=== PATIENT | male | born 1970 | race Two or more races ===

== ENCOUNTER 2020-09-18 07:07 | Outpatient (REF) | payer MEDICARE, MEDICAID, SELFPAY ==
[2020-09-18 08:54] LABS: Alanine Aminotransferase 283 U/L (0-40); Albumin Level 4.1 g/dL (3.5-5.0); Alkaline Phosphatase 110 U/L (39-117); Anion Gap 11 (12-20); Aspartate Amino Transferase 211 U/L (5-37); Bilirubin Total 0.6 mg/dL (0.0-1.0); Blood Urea Nitrogen 22 mg/dL (9-16); Calcium 9.2 mg/dL (8.4-10.2); Carbon Dioxide 28 mmol/L (22-29); Chloride 105 mmol/L (96-108); Cholesterol 117 mg/dL; Estimated Glomerular Filt Rate > 60; Glucose Fasting 102 mg/dL (60-99); HDL Cholesterol 19 mg/dL; LDL Cholesterol Calculated 72 mg/dl; Potassium 4.3 mmol/l (3.3-5.1); Sodium 140 mmol/L (135-145); Total Protein 6.9 g/dL (6.5-8.0); Triglycerides 132 mg/dL
== END 2020-09-18 07:08 | disposition home or self-care (01) ==
LOC: HO.LAB 07:07
PROVIDERS: Visit Provider Internal Medicine
DX: Z13.89 Encounter for screening for other disorder (principal)
CPT/HCPCS: 80053; 80061

== ENCOUNTER 2020-09-18 07:34 | Outpatient (REF) | payer MEDICARE, MEDICAID, SELFPAY | END 2020-09-18 07:35 | disposition home or self-care (01) | LOC: HO.LAB 07:34 | PROVIDERS: PCP Internal Medicine; Visit Provider Internal Medicine | DX: Z20.828 Contact with and (suspected) exposure to other viral communicable diseases (principal) | CPT/HCPCS: 80053; 80061; C9803; U0003 ==

== ENCOUNTER → 2020-09-26 14:00 | Outpatient (BNVA) | payer MEDICARE, MEDICAID, SELFPAY | PROVIDERS: PCP Internal Medicine; Visit Provider Physician Assistant | DX: Z13.89 Encounter for screening for other disorder (principal) | CPT/HCPCS: Q3014 ==

== ENCOUNTER 2020-09-27 06:35 | Outpatient (REF) | payer MEDICARE, MEDICAID, SELFPAY ==
[2020-09-27 07:22] LABS: Eosinophils Absolute Auto 0.3 X10*3/uL (0.0-0.4); Imm Gran Abs Auto 0.01 X10*3/uL (0.00-0.03); Imm Gran Pct Auto 0.2 % (0.0-0.4); MANUAL DIFF FLAG SCAN; Neutrophils Percent Auto 55.2 % (45-73); PLT CLUMP 1; SCAN SMEAR FLAG 1
[2020-09-27 07:24] LABS: Basophils Absolute Auto 0.1 X10*3/uL (0.0-0.2); Hematocrit 48.7 % (42-52); Hemoglobin 16.4 g/dl (14.0-18.0); Mean Corpuscular HGB Conc 33.7 g/dl (31.0-36.0); Mean Corpuscular Hemoglobin 33.6 pg (27.0-33.0); Mean Corpuscular Volume 99.8 fL (80-98); Mean Platelet Volume 11.4 fL (9.4-12.4); Monocytes Absolute Auto 0.5 X10*3/uL (0.1-1.2); Monocytes Percent Auto 7.6 % (2-11); Neutrophils Absolute Auto 3.4 X10*3/uL (2.0-8.3); Platelet Count 115 X10*3/uL (160-400); Red Blood Count 4.88 X10*6/uL (4.60-5.80); Red Cell Distribution Width 12.1 % (11.0-16.0); White Blood Count 6.2 X10*3/uL (4.8-10.8)
[2020-09-27 07:54] LABS: Hepatitis A Antibody IgG REACTIVE (Nonreactive); ~Hepatitis A Antibody IgG 1.11 S/CO (0.00-0.99)
[2020-09-27 07:56] LABS: HBsAGNum1 0.24 S/CO (0.00-0.99); Hepatitis B Surface Antigen Negative (Negative)
[2020-09-27 07:58] LABS: HBS Num1 3.62 mIU/mL (0-7.99); Hepatitis B Core Antibody Nonreactive (Nonreactive); ~Hepatitis B Surface Antibody NONREACTIVE (Nonreactive)
[2020-09-29 18:47] LABS: Alpha 1 Anti-trypsin 156 mg/dL (83-199); Ceruloplasmin 28 mg/dL (18-36)
[2020-10-01 13:27] LABS: Mitochondrial Antibodies NEGATIVE (NEGATIVE)
[2020-10-02 09:57] LABS: Anti Nuclear Antibody Screen POSITIVE
[2020-10-02 12:28] LABS: Smooth Muscle Antibody <20 U (<20)
[2020-10-02 19:08] LABS: Hepatitis C Genotype 1a
== END 2020-09-27 06:36 | disposition home or self-care (01) ==
LOC: HO.LAB 06:35
PROVIDERS: Visit Provider Physician Assistant
DX: R74.01 Elevation of levels of liver transaminase levels (principal); R74.8 Abnormal levels of other serum enzymes
CPT/HCPCS: 36415; 82103; 82390; 85025; 86038; 86039; 86255; 86256; 86704; 86706; 86708; 87340; 87902

== ENCOUNTER → 2020-10-18 13:28 | Outpatient (BNVA) | payer MEDICARE, MEDICAID, SELFPAY | PROVIDERS: PCP Internal Medicine; Visit Provider Physician Assistant | DX: Z13.89 Encounter for screening for other disorder (principal) | CPT/HCPCS: Q3014 ==

== ENCOUNTER 2020-11-17 07:38 | Outpatient (REF) | payer MEDICARE, MEDICAID, SELFPAY ==
--- NOTE | ~2020-11-17 | US_ITS ---
EXAMINATION: US ABDOMEN LIMITED WITH LIVER ELASTOGRAPHY CLINICAL INFORMATION: LFT COMPARISON: US February 2014 TECHNIQUE: Real-time imaging of the abdominal viscera. Noninvasive ultrasound liver fibrosis assessment is performed using Jessica ElastPQ point quantification shear wave elastography (pSWE) with a C5-2 MHz transducer. Multiple elastography samples are obtained. FINDINGS: PANCREAS: Normal. LIVER: Normal. The liver demonstrates normal size, contour and echogenicity. No focal lesion or intrahepatic biliary duct dilatation. The right lobe measures 18 cm in length. The left lobe measures 14 cm in length. Portal flow is hepatopetal. Shear wave liver elastography median stiffness is 1.99 m/s (reference: normal median stiffness is 1.3 m/s or less). IQR/median stiffness to assess sampling precision is .21 (reference: good quality data set is IQR/median stiffness of 0.15 or less). GALLBLADDER: Normal. The gallbladder is physiologically distended without evidence of stones, sludge, polyps, wall thickening or pericholecystic fluid. COMMON BILE DUCT: Normal in caliber measuring 0.4 cm in diameter. RIGHT KIDNEY: Normal. No hydronephrosis. No renal calculi or focal parenchymal lesions. The kidney measures 11.3 cm in maximum dimension. FREE FLUID: None. US/US abdomen burns w elastography IMPRESSION: 1. Impression: Unremarkable exam. 2. Liver elastography: Slightly limited due to sampling error. Increased liver stiffness suggestive of possible compensated advanced chronic liver disease. Additional testing should be considered. REFERENCE: Society of Radiologists in Ultrasound Liver Stiffness Thresholds (2020): LIVER STIFFNESS THRESHOLDS: *Liver Stiffness equal or less than 1.3 m/s: High probability of being normal. *Liver Stiffness less than 1.7 m/s: In the absence of other known clinical signs, rules out compensated advanced chronic liver disease. *Liver Stiffness 1.7-2.1 m/s: Suggestive of compensated advanced chronic liver disease but need further test for confirmation. *Liver Stiffness over 2.1 m/s: Rules in compensated advanced chronic liver disease. *Liver Stiffness over 2.4 m/s: Suggestive of clinically significant portal hypertension. QUALITY OF DATA SET: *IQR/Median value equal or less than 0.15 implies a quality data set. *IQR/Median value over 0.15 implies a poor quality data set. SIGNIFICANT CHANGE FROM PRIOR EXAM: Significant change if liver stiffness measurement is 10% or greater from prior exam. OTHER CONSIDERATIONS: The stage of liver fibrosis may be overestimated in the setting of acute hepatitis, liver inflammation, elevated liver function tests, hepatic vascular congestion, obstructive cholestasis, non-fasting state, and infiltrative diseases such as amyloidosis and lymphoma. In some patients with NAFLD, the liver stiffness thresholds for compensated advanced chronic liver disease may be lower. In causes other than viral hepatitis and NAFLD, liver stiffness thresholds are not well established.
== END 2020-11-17 07:39 | disposition home or self-care (01) ==
LOC: HO.US 07:38
PROVIDERS: Visit Provider Physician Assistant
DX: R74.01 Elevation of levels of liver transaminase levels (principal)
CPT/HCPCS: 76705; 76981

== ENCOUNTER → 2020-12-11 10:33 | Outpatient (BNVA) | payer MEDICARE, MEDICAID, SELFPAY | PROVIDERS: PCP Internal Medicine; Visit Provider Physician Assistant | DX: Z13.89 Encounter for screening for other disorder (principal) | CPT/HCPCS: Q3014 ==

== ENCOUNTER 2020-12-12 06:30 | Outpatient (REF) | payer MEDICARE, MEDICAID, SELFPAY ==
[2020-12-12 06:50] LABS: MANUAL DIFF FLAG NO
[2020-12-12 06:56] LABS: Basophils Percent Auto 0.7 % (0-2); Eosinophils Absolute Auto 0.3 X10*3/uL (0.0-0.4); Eosinophils Percent Auto 4.4 % (0-4); Hematocrit 47.2 % (42-52); Hemoglobin 15.8 g/dl (14.0-18.0); Imm Gran Abs Auto 0.01 X10*3/uL (0.00-0.03); Imm Gran Pct Auto 0.2 % (0.0-0.4); Lymphocytes Percent Auto 34.3 % (20-40); Mean Corpuscular HGB Conc 33.5 g/dl (31.0-36.0); Mean Corpuscular Hemoglobin 32.8 pg (27.0-33.0); Mean Corpuscular Volume 98.1 fL (80-98); Mean Platelet Volume 10.4 fL (9.4-12.4); Monocytes Absolute Auto 0.5 X10*3/uL (0.1-1.2); Monocytes Percent Auto 8.1 % (2-11); Neutrophils Absolute Auto 3.1 X10*3/uL (2.0-8.3); Neutrophils Percent Auto 52.3 % (45-73); Platelet Count 144 X10*3/uL (160-400); Red Blood Count 4.81 X10*6/uL (4.60-5.80); White Blood Count 5.9 X10*3/uL (4.8-10.8)
[2020-12-12 07:35] LABS: Alanine Aminotransferase 267 U/L (0-40); Alkaline Phosphatase 110 U/L (39-117); Aspartate Amino Transferase 157 U/L (5-37); Bilirubin Direct 0.3 mg/dL (0.0-0.5); Total Protein 6.8 g/dL (6.5-8.0)
[2020-12-14 17:47] LABS: HepC Viral Load 502000 IU/mL (NOT DETECTED)
[2020-12-16 17:42] LABS: FIB-ALT 231 U/L (9-46); FIB-Alpha-2-Macroglobulin 338 mg/dL (106-279); FIB-Apolipoprotein A1 88 mg/dL (94-176); FIB-GGT 70 U/L (3-95); FIB-Haptoglobin 76 mg/dL (43-212); FIB-Total Bilirubin 0.7 mg/dL (0.2-1.2); Liver Fibrosis Stage F4; Nec Inflam Act Grade A3; Nec Inflam Act Score 0.92
== END 2020-12-12 06:31 | disposition home or self-care (01) ==
LOC: HO.LAB 06:30
PROVIDERS: PCP Internal Medicine; Visit Provider Physician Assistant
DX: R74.01 Elevation of levels of liver transaminase levels (principal); B19.20 Unspecified viral hepatitis C without hepatic coma; R10.11 Right upper quadrant pain; Z23 Encounter for immunization
CPT/HCPCS: 36415; 80076; 81596; 85025; 87522; 90471; 90746

== ENCOUNTER → 2020-12-25 10:19 | Outpatient (BNVA) | payer MEDICARE, MEDICAID, SELFPAY | PROVIDERS: PCP Internal Medicine; Visit Provider Physician Assistant | DX: B19.20 Unspecified viral hepatitis C without hepatic coma (principal) | CPT/HCPCS: Q3014 ==

== ENCOUNTER → 2021-01-29 08:50 | Outpatient (BNVA) | payer MEDICARE, MEDICAID, SELFPAY | PROVIDERS: PCP Internal Medicine; Visit Provider Physician Assistant | DX: Z23 Encounter for immunization (principal) | CPT/HCPCS: 90471; 90746 ==

== ENCOUNTER 2021-02-22 05:56 | Outpatient (REF) | payer MEDICARE, MEDICAID, SELFPAY ==
[2021-02-22 07:03] LABS: MANUAL DIFF FLAG NO
[2021-02-22 07:08] LABS: Basophils Absolute Auto 0.1 X10*3/uL (0.0-0.2); Basophils Percent Auto 0.8 % (0-2); Eosinophils Absolute Auto 0.4 X10*3/uL (0.0-0.4); Hematocrit 48.2 % (42-52); Hemoglobin 16.2 g/dl (14.0-18.0); Imm Gran Abs Auto 0.03 X10*3/uL (0.00-0.03); Imm Gran Pct Auto 0.4 % (0.0-0.4); Lymphocytes Absolute Auto 2.4 X10*3/uL (1.2-4.9); Lymphocytes Percent Auto 34.1 % (20-40); Mean Corpuscular HGB Conc 33.6 g/dl (31.0-36.0); Mean Corpuscular Hemoglobin 32.9 pg (27.0-33.0); Mean Platelet Volume 10.9 fL (9.4-12.4); Monocytes Absolute Auto 0.5 X10*3/uL (0.1-1.2); Monocytes Percent Auto 7.1 % (2-11); Neutrophils Absolute Auto 3.8 X10*3/uL (2.0-8.3); Neutrophils Percent Auto 52.6 % (45-73); Platelet Count 192 X10*3/uL (160-400); Red Blood Count 4.92 X10*6/uL (4.60-5.80); Red Cell Distribution Width 12.1 % (11.0-16.0); White Blood Count 7.2 X10*3/uL (4.8-10.8)
[2021-02-22 07:34] LABS: Alanine Aminotransferase 28 U/L (0-40); Albumin Level 4.1 g/dL (3.5-5.0); Alkaline Phosphatase 112 U/L (39-117); Anion Gap 11 (12-20); Aspartate Amino Transferase 25 U/L (5-37); Bilirubin Total 0.5 mg/dL (0.0-1.0); Blood Urea Nitrogen 16 mg/dL (9-16); Carbon Dioxide 26 mmol/L (22-29); Chloride 108 mmol/L (96-108); Estimated Glomerular Filt Rate > 60; Glucose Random 105 mg/dL (60-115); Potassium 4.4 mmol/L (3.3-5.1); Sodium 141 mmol/L (135-145); Total Protein 6.8 g/dL (6.5-8.0)
[2021-02-24 09:01] LABS: HCV Log PCR <1.18 NOT DETECTED Log IU/mL (NOT DETECTED); HepC Viral Load <15 NOT DETECTED IU/mL (NOT DETECTED)
== END 2021-02-22 05:57 | disposition home or self-care (01) ==
LOC: HO.LAB 05:56
PROVIDERS: PCP Internal Medicine; Visit Provider Physician Assistant
DX: B19.20 Unspecified viral hepatitis C without hepatic coma (principal)
CPT/HCPCS: 36415; 80053; 85025; 87522; 99212

== ENCOUNTER → 2021-03-22 09:41 | Outpatient (BNVA) | payer MEDICARE, MEDICAID, SELFPAY | PROVIDERS: PCP Internal Medicine; Visit Provider Physician Assistant | DX: Z13.89 Encounter for screening for other disorder (principal) | CPT/HCPCS: Q3014 ==

== ENCOUNTER 2021-04-16 06:39 | Outpatient (REF) | payer MEDICARE, MEDICAID, SELFPAY ==
[2021-04-16 07:36] LABS: MANUAL DIFF FLAG NO
[2021-04-16 07:40] LABS: Basophils Absolute Auto 0.1 X10*3/uL (0.0-0.2); Basophils Percent Auto 0.8 % (0-2); Eosinophils Absolute Auto 0.4 X10*3/uL (0.0-0.4); Eosinophils Percent Auto 4.3 % (0-4); Hematocrit 50.4 % (42-52); Hemoglobin 16.5 g/dl (14.0-18.0); Imm Gran Abs Auto 0.03 X10*3/uL (0.00-0.03); Imm Gran Pct Auto 0.3 % (0.0-0.4); Lymphocytes Absolute Auto 3.1 X10*3/uL (1.2-4.9); Mean Corpuscular HGB Conc 32.7 g/dl (31.0-36.0); Mean Corpuscular Hemoglobin 31.9 pg (27.0-33.0); Mean Corpuscular Volume 97.3 fL (80-98); Mean Platelet Volume 10.7 fL (9.4-12.4); Monocytes Absolute Auto 0.7 X10*3/uL (0.1-1.2); Monocytes Percent Auto 7.3 % (2-11); Neutrophils Absolute Auto 4.8 X10*3/uL (2.0-8.3); Neutrophils Percent Auto 53.3 % (45-73); Platelet Count 204 X10*3/uL (160-400); Red Blood Count 5.18 X10*6/uL (4.60-5.80); Red Cell Distribution Width 12.3 % (11.0-16.0)
[2021-04-16 07:56] LABS: Alanine Aminotransferase 58 U/L (0-40); Albumin Level 4.1 g/dL (3.5-5.0); Alkaline Phosphatase 104 U/L (39-117); Anion Gap 13 (12-20); Aspartate Amino Transferase 47 U/L (5-37); Bilirubin Total 0.6 mg/dL (0.0-1.0); Blood Urea Nitrogen 18 mg/dL (9-16); Calcium 9.6 mg/dL (8.4-10.2); Carbon Dioxide 26 mmol/L (22-29); Chloride 109 mmol/L (96-108); Estimated Glomerular Filt Rate > 60; Glucose Random 110 mg/dL (60-115); Potassium 4.5 mmol/L (3.3-5.1); Sodium 143 mmol/L (135-145); Total Protein 6.9 g/dL (6.5-8.0)
[2021-04-19 11:26] LABS: HCV Log PCR <1.18 NOT DETECTED Log IU/mL (NOT DETECTED); HepC Viral Load <15 NOT DETECTED IU/mL (NOT DETECTED)
== END 2021-04-16 06:40 | disposition home or self-care (01) ==
LOC: HO.LAB 06:39
PROVIDERS: PCP Internal Medicine; Visit Provider Physician Assistant
DX: B19.20 Unspecified viral hepatitis C without hepatic coma (principal)
CPT/HCPCS: 36415; 80053; 85025; 87522

== ENCOUNTER 2021-10-01 07:14 | Outpatient (REF) | payer MEDICARE, MEDICAID, SELFPAY ==
[2021-10-01 07:28] LABS: MANUAL DIFF FLAG NO
[2021-10-01 07:49] LABS: Basophils Absolute Auto 0.1 X10*3/uL (0.0-0.2); Basophils Percent Auto 0.9 % (0-2); Eosinophils Absolute Auto 0.2 X10*3/uL (0.0-0.4); Eosinophils Percent Auto 3.1 % (0-4); Hematocrit 49.4 % (42.0-52.0); Hemoglobin 16.5 g/dl (14.0-18.0); Imm Gran Abs Auto 0.02 X10*3/uL (0.00-0.03); Imm Gran Pct Auto 0.3 % (0.0-0.4); Lymphocytes Absolute Auto 2.7 X10*3/uL (1.2-4.9); Lymphocytes Percent Auto 34.9 % (20-40); Mean Corpuscular HGB Conc 33.4 g/dl (31.0-36.0); Mean Corpuscular Volume 95.7 fL (80.0-98.0); Mean Platelet Volume 10.7 fL (9.4-12.4); Monocytes Absolute Auto 0.6 X10*3/uL (0.1-1.2); Monocytes Percent Auto 7.9 % (2-11); Neutrophils Absolute Auto 4.1 x10*3/uL (2.0-8.3); Neutrophils Percent Auto 52.9 % (45-73); Platelet Count 220 X10*3/uL (160-400); Red Blood Count 5.16 X10*6/uL (4.60-5.80); Red Cell Distribution Width 12.3 % (11.0-16.0); White Blood Count 7.7 X10*3/uL (4.8-10.8)
[2021-10-01 08:00] LABS: Alanine Aminotransferase 61 U/L (0-40); Albumin Level 4.3 g/dL (3.5-5.0); Alkaline Phosphatase 89 U/L (39-117); Anion Gap 11 (12-20); Aspartate Amino Transferase 40 U/L (5-37); Bilirubin Total 1.1 mg/dL (0.0-1.0); Blood Urea Nitrogen 19 mg/dL (9-16); Calcium 10.2 mg/dL (8.4-10.2); Carbon Dioxide 25 mmol/L (22-29); Chloride 109 mmol/L (96-108); Estimated Glomerular Filt Rate > 60; Glucose Random 109 mg/dL (60-115); Sodium 141 mmol/L (135-145); Total Protein 7.1 g/dL (6.5-8.0)
[2021-10-06 16:01] LABS: HCV Log PCR <1.18 NOT DETECTED Log IU/mL (NOT DETECTED); HepC Viral Load <15 NOT DETECTED IU/mL (NOT DETECTED)
== END 2021-10-01 07:15 | disposition home or self-care (01) ==
LOC: HO.LAB 07:14
PROVIDERS: PCP Physician Assistant; Visit Provider Physician Assistant
DX: B19.20 Unspecified viral hepatitis C without hepatic coma (principal)
CPT/HCPCS: 36415; 80053; 85025; 87522

== ENCOUNTER 2021-10-08 08:17 | Outpatient (REF) | payer MEDICARE, MEDICAID, SELFPAY ==
[2021-10-08 09:34] LABS: COVID-19 Test Negative (Negative); IDNOW Serial# 16C4AD1C
== END 2021-10-08 08:18 | disposition home or self-care (01) ==
LOC: HO.LAB 08:17
PROVIDERS: Visit Provider Internal Medicine
DX: Z20.822 Contact with and (suspected) exposure to COVID-19 (principal)
CPT/HCPCS: 87635; C9803

== ENCOUNTER → 2022-06-20 11:48 | Outpatient (BNVA) | payer MEDICARE, MEDICAID, SELFPAY | PROVIDERS: PCP Internal Medicine; Visit Provider Physician Assistant | DX: B19.20 Unspecified viral hepatitis C without hepatic coma (principal); K58.9 Irritable bowel syndrome, unspecified | CPT/HCPCS: 99212 ==

== ENCOUNTER 2023-04-02 16:04 | Outpatient (AMB) | payer MEDICARE, MEDICAID, SELFPAY ==
[2023-04-02 16:07] VITALS: BP 118/60; PULSE 67; O2SAT 97; BMI 20.8
--- NOTE | 2023-04-02 16:07 | A.OFFVIS_ITS ---
Intake Vital Signs 04/02/23 16:07 Height 5 ft 6 in Weight 129 lb BMI 20.8 BP 118/60 Blood Pressure Location Lt brachial Position Sitting Pulse 67 Pulse Source Pulse Oximeter Temp Source Skin Pulse Oximetry (%) 97 Oxygen Delivery Method Room Air Intake Visit Reasons: AWV Intake Note: Patient is here for an Annual Wellness Visit. Chest Painting Leader Required: Yes Chest Painting Leader Language: Omani Allergies penicillin V Allergy (Unknown, Verified 04/02/23 16:37) rash Medication List - Last Reconciled 04/02/23 by BOB Guallpa trazodone 50 mg PO BEDTIME PRN 30 days HPI AWV HPI Details Patient is a 52-year-old male who presents today for initial wellness visit. Patient of Dr. Metcalf. Today we discussed patient's need for colon cancer screening, prostate cancer screening, and diabetes screening. [place] of care was reviewed with the patient and he was provided with a screening schedule. End of life planning was discussed with the patient and he was provided with healthcare proxy and MOLST forms. Patient is a Omani- speaking and Casa was helping with interpretation. [facility] Medical History Depression Family history of diabetes mellitus HCV (hepatitis C virus) Insomnia Panic attacks Transaminitis Family History Father No problems noted. Mother No problems noted. Sister Diabetes mellitus Social History Household Members: None Household Members Other:: alone Alcohol intake: never Cigarettes Per Day: 10 Substance Use Type: Marijuana Current occupational status: disabled Questionnaire Medicare Wellness Checkup [age] 65-69 What gender do you identify with?: male During the past 4 weeks, how much have you been bothered by emotional problems such as feeling anxious, depressed, irritable, sad or downhearted, and blue?: not at all During the past 4 weeks, has your physical & emotional health limited your social activities with family, friends, neighbors, or groups?: not at all During the past 4 weeks, how much bodily pain have you generally had?: mild pain During the past 4 weeks, was someone available to help you if you needed & wanted help?: no, not at all During the past 4 weeks, what was the hardest physical activity you could do for at least 2 minutes?: moderate Can you get to places out of walking distance without help? (For eg., can you travel alone on buses, taxis or drive your car?): Yes Can you go shopping for groceries or clothes without someone's help?: Yes Can you prepare your own meals?: Yes Can you do your housework without help?: Yes Because of any health problems, do you need the help of another person with your personal care needs such as eating, bathing, dressing or getting around the house?: No Can you handle your own money without help?: Yes During the past 4 weeks, how would you rate your health in general?: fair During the past 4 weeks how have things been going for you?: pretty well Are you having difficulties driving your car?: no Do you always fasten your seat belt when you are in a car?: yes, usually During past 4 weeks, have you been bothered by the following: never: Sexual problems? and Problems using the telephone?, sometimes: Teeth or denture problems?, often: Falling or dizzy when standing up and Tiredness or fatigue? and always: Trouble eating well? Have you fallen 2 or more times in the past year?: No Are you afraid of falling?: No Are you a smoker?: yes, but I'm not ready to quit During the past 4 weeks, how many drinks of wine, beer, or other alcoholic beverages did you have?: 1 drink or less per week Do you exercise for about 20 minutes 3 or more times a week?: yes, some of the time Have you been given information to help with the following?: no: Hazards in your house that might hurt you? and no: Keeping track of your medications? How often do you have trouble taking medicines the way you have been told to vincenzo e them?: I always take medicine as prescribed How confident are you that you can control & manage most of your health problems?: somewhat confident What is your race?: or origin or descent Mini Mental State Exam (MMSE) Orientation What is the (year) (season) (date) (day) (month)?: year, season, date, day and month Score Score: 5 Activity of Daily Living Bathing - sponge bath, tub bath or shower: receives no assistance (gets in/out by self, if usual bathing means Dressing - getting clothes from closets & drawers, including inner/outer garments & fasteners.: gets clothes & gets completely dressed without help Toileting - going to the 'toilet room' for urine/bowel elimination & cleaning self/arranging clothes: goes to toilet room, cleans self, arranges clothes without help Transfer: moves in & out of bed and chair without help (may use support object) Continence: controls urination/bowel movements completely by self Feeding: feeds self without help Total Score: 0 Information obtained from: patient Using telephone: independent Traveling: independent Shopping: independent Preparing meals: independent Housework: independent Taking medicine: independent Managing money: independent PHQ-9 Over the last 2 weeks, how often have you been bothered by any of the following problems? 1. Little interest or pleasure in doing things: not at all 2. Feeling down, depressed, or hopeless: not at all 3. Trouble falling or staying asleep, or sleeping too much: not at all 4. Feeling tired or having little energy: not at all 5. Poor appetite or overeating: not at all 6. Feeling bad about yourself - or that you are a failure or have let yourself or your family down: not at all 7. Trouble concentrating on things, such as reading the newspaper or watching television: not at all 8. Moving or speaking so slowly that other people could have noticed. Or the opposite - being so fidgety or restless that you have been moving around a lot more than usual: not at all 9. Thoughts that you would be better off or of hurting yourself in some way: not at all Total score: 0 Depression Screening Interpretation: Negative 03219 - PHQ-9 Billing: Yes Source: Developed by Drs. Rm Thomas, Marcella Mast, Rohan Brambila and colleagues, with an educational lamar from [employer]. SULLY-7 AMB Questionnaire SULLY-7 Date SULLY - 7 assessed: 04/02/23 Feeling nervous, anxious, or on edge: 0 = Not at all Not being able to stop or control worryin = Not at all Worrying too much about different things: 0 = Not at all Trouble relaxin = Not at all Being so restless that it is hard to sit still: 0 = Not at all Becoming easily annoyed or irritable: 0 = Not at all Feeling afraid as if something awful might happen: 0 = Not at all Total SULLY-7 score (0-4 normal; 5-9 mild; 10-14 moderate; 15-21 severe): 0 Source: Developed by Drs. Rm Thomas, Marcella Mast, Rohan Brambila and colleagues, with an educational lamar from [employer]. SULLY-7 Assessment Billing SULLY-7 Assessment Tool: SULLY-7 Assessment 15752 AUDIT C Alcohol Use Questionnaire (AUDIT-C) 1. How often do you have a drink containing alcohol?: Never 3. How often do you have six or more drinks on one occasion?: Never Total Score: 0 Score Reviewed/Action Taken: No Thrive Questionnaire Date Thrive assessed: 04/02/23 I am a: Patient What is your living situation today?: I have a steady place to live Within the past 12 months, did the food you bought not last and you didn't have the money to get more?: Never true Within the past 12 months, did you worry whether your food would run out before you got money to buy more?: Never true Do you have trouble paying for medicines?: No Do you have trouble getting transportation to medical appointments?: No Do you have trouble paying your heating and electricity bill?: No Do you have trouble taking care of your child, family member or friend?: No Do you have trouble with day-to-day activities such as bathing, preparing meals, shopping, managing finances, etc.?: No Are you currently unemployed and looking for a job?: No Are you interested in more education?: No Currently or been in a relationship where the following occur: no concerns reported Physical Exam Vital Signs: Last Vital Signs Pulse 67 04/02/23 16:07 BP 118/60 04/02/23 16:07 Pulse Ox 97 04/02/23 16:07 Oxygen Delivery Method Room Air 04/02/23 16:07 BMI result Body Mass Index 20.8 Const General: cooperative and no acute distress Orientation/consciousness: patient oriented x3 HEENT Other: Whisper test: pass Neuro Other: Balance: Normal Get up and walk: able to Romberg: negative Tandem gait: able to General: patient oriented x3 Assessment & Plan Assessment & Plan (1) Screening for colon cancer: Code(s): Z12.11 - Encounter for screening for malignant neoplasm of colon (2) Screening for prostate cancer: Code(s): Z12.5 - Encounter for screening for malignant neoplasm of prostate (3) Screening for diabetes mellitus: Code(s): Z13.1 - Encounter for screening for diabetes mellitus (4) Insomnia: Code(s): G47.00 - Insomnia, unspecified Plan: On trazodone at bedtime as needed Reinforced sleep hygiene (5) Depression: Code(s): F32.9 - Major depressive disorder, single episode, unspecified Qualifiers: Depression Type: other depression Qualified Code(s): F32.89 - Other specified depressive episodes Plan: Patient reports that he will be seeing psychiatrist soon (6) Adult general medical exam: Code(s): Z00.00 - Encounter for general adult medical examination without abnormal findings Orders: Orders Basic Metabolic Panel Fasting Today Z13.1 - Encounter for screening for diabetes mellitus Prostate Specific Antigen Today Z12.5 - Encounter for screening for malignant neoplasm of prostate Referrals Gastroenterology Referral Z12.11 - Encounter for screening for malignant neoplasm of colon Quality Reporting (2020) Fall Risk Screening ([facility] 139) Last assessed Fall Risk: 04/02/23 Fall risk assessment: No Falls in past year Depression/Bipolar (159/160/161/177) PHQ-9: Total score: 0 Coding Level of Care Code Medicare First (G0438) Diagnoses Screening for colon cancer Z12.11 Screening for prostate cancer Z12.5 Screening for diabetes mellitus Z13.1 Insomnia G47.00 Depression F32.89 Depression Type: other depression Adult general medical exam Z00.00 CPT Codes Advance Care Planning - Time spent: 1-15 minutes, not on file ([id number]) Additional Codes SULLY-7 Assessment Billing - SULLY-7 Assessment Tool: SULLY-7 Assessment 58989 ([id number]) Advance Care Planning Date of discussion: 04/02/23 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
== END 2023-04-02 16:54 | disposition home or self-care (01) ==
PROVIDERS: PCP Internal Medicine; Visit Provider Nurse Practitioner Family
DX: Z12.11 Encounter for screening for malignant neoplasm of colon (principal); Z12.5 Encounter for screening for malignant neoplasm of prostate; Z13.1 Encounter for screening for diabetes mellitus; G47.00 Insomnia, unspecified; F32.89 Other specified depressive episodes; Z00.00 Encounter for general adult medical examination without abnormal findings; Z71.89 Other specified counseling
CPT/HCPCS: 1124F; G0438

== ENCOUNTER 2023-04-07 06:28 | Outpatient (REF) | payer MEDICARE, MEDICAID, SELFPAY ==
[2023-04-07 07:50] LABS: Anion Gap 12 (12-20); Blood Urea Nitrogen 15 mg/dL (9-16); Calcium 10.2 mg/dL (8.4-10.2); Carbon Dioxide 27 mmol/L (22-29); Chloride 106 mmol/L (96-108); Estimated Glomerular Filt Rate > 60; Glucose Fasting 106 mg/dL (60-99); Potassium 4.4 mmol/L (3.3-5.1); Sodium 141 mmol/L (135-145)
[2023-04-07 08:06] LABS: Prostate Specific Antigen 1.25 ng/mL (<0.05-4.0)
== END 2023-04-07 06:29 | disposition home or self-care (01) ==
LOC: HO.LAB 06:28
PROVIDERS: PCP Internal Medicine; Visit Provider Nurse Practitioner Family
DX: Z12.5 Encounter for screening for malignant neoplasm of prostate (principal); Z13.1 Encounter for screening for diabetes mellitus
CPT/HCPCS: 36415; 80048; 84153

== ENCOUNTER 2023-04-19 08:09 | Emergency (ER) | payer MEDICARE, MEDICAID, SELFPAY ==
--- NOTE | ~2023-04-19 | XR_ITS ---
EXAMINATION: XR RIBS, LEFT CLINICAL INFORMATION: Left lateral rib pain status post fall COMPARISON: None available. TECHNIQUE: 7 views of the left ribs and chest FINDINGS: Hyperinflation bilateral lung zabala. Biapical pleural parenchymal scarring. No pneumothorax. Trachea is midline. Cardiac mediastinal silhouette is not enlarged. No large pleural effusion. Soft tissues are unremarkable. Osseous structures are intact. No acute visualized left-sided rib fractures. XR/XR ribs LT min 3V w CXR1V IMPRESSION: 1. Hyperinflation bilateral lung zabala. 2. Biapical pleural parenchymal scarring. 3. No acute visualized left-sided rib fractures.
--- NOTE | ~2023-04-19 | XR_ITS ---
EXAMINATION: XR LUMBAR SPINE, 3 VIEWS XR LEFT HIP, 3 VIEWS CLINICAL INFORMATION: Pain status post trauma COMPARISON: None available. TECHNIQUE: 3 views of the lumbar spine 3 views of the left hip FINDINGS: LUMBAR SPINE: 5 nonrib-bearing lumbar-type vertebral bodies. No acute visible fracture or dislocation. Mild to moderate multilevel degenerative changes disc space narrowing and endplate sclerosis and osteophyte formation and facet arthropathy. Vertebral body heights and disc spaces visualized bowel gas is unremarkable. Are maintained. Posterior elements are intact. Paraspinal soft tissues are unremarkable. LEFT HIP: No acute visible fracture dislocation. Mild degenerative arthropathy of the left femoral acetabular joint. Joint spaces and alignment are otherwise maintained. Soft tissues are unremarkable. XR/XR lumbar spine 2-3V IMPRESSION: 1. No acute visible fracture or dislocation. 2. Mild to moderate multilevel degenerative changes of the lumbar spine. 3. Mild degenerative arthropathy of the left femoral acetabular joint.
--- NOTE | ~2023-04-19 | XR_ITS ---
EXAMINATION: XR LUMBAR SPINE, 3 VIEWS XR LEFT HIP, 3 VIEWS CLINICAL INFORMATION: Pain status post trauma COMPARISON: None available. TECHNIQUE: 3 views of the lumbar spine 3 views of the left hip FINDINGS: LUMBAR SPINE: 5 nonrib-bearing lumbar-type vertebral bodies. No acute visible fracture or dislocation. Mild to moderate multilevel degenerative changes disc space narrowing and endplate sclerosis and osteophyte formation and facet arthropathy. Vertebral body heights and disc spaces visualized bowel gas is unremarkable. Are maintained. Posterior elements are intact. Paraspinal soft tissues are unremarkable. LEFT HIP: No acute visible fracture dislocation. Mild degenerative arthropathy of the left femoral acetabular joint. Joint spaces and alignment are otherwise maintained. Soft tissues are unremarkable. XR/XR hip LT w PEL1V IMPRESSION: 1. No acute visible fracture or dislocation. 2. Mild to moderate multilevel degenerative changes of the lumbar spine. 3. Mild degenerative arthropathy of the left femoral acetabular joint.
--- NOTE | ~2023-04-19 | CT_ITS ---
EXAMINATION: CT HIP WITHOUT CONTRAST, LEFT CLINICAL INFORMATION: Left hip pain status post fall. COMPARISON: None available. TECHNIQUE: Multidetector volumetric imaging was obtained through the left hip without contrast material. Multiplanar reformatted images in coronal and sagittal orientations were submitted. This CT examination was performed using dose optimization techniques as appropriate, variously including the following: *Automated exposure control *Adjustment of mA and/or kV according to patient size (this includes techniques or standardized protocols for targeted exams where dose is matched to indication/reason for exam; i.e. extremities or head) *Use of iterative reconstruction technique DLP: 164 mGy-cm FINDINGS: No fracture or malalignment. The proximal femur and the imaged portion of the left innominate bone are intact. Left hip joint appears well-preserved. Tiny osteophyte at the fovea of the femoral head. The musculature at the left hip appears normal by CT. No atrophy. Edema is evident in the subcutaneous fat at the lateral aspect of the left hip overlying the IT band. No fluid collections are identified. No appreciable hip joint effusion. Imaged intrapelvic soft tissues are unremarkable. Calcific atherosclerosis is present in the left common femoral and superficial femoral arteries. CT/CT hip LT wo IV con IMPRESSION: 1. No acute fracture or malalignment at the left hip. 2. Subcutaneous edema at the lateral aspect of the left hip.
[2023-04-19 08:13] VITALS: BP 138/68; PULSE 67; RESP 16; TEMP 36.2; O2SAT 97; BMI 20.5
[2023-04-19] MEDS: Ibuprofen 600 MG TABLET PO (08:25)
[2023-04-19] MEDS: Acetaminophen 325 MG TABLET 975 MG PO (08:25)
--- NOTE | 2023-04-19 09:58 | ED.GENADULT ---
[facility] - General Adult General Chief complaint: Extremity Injury, Lower Stated complaint: L leg pain Time Seen by Provider: 04/19/23 09:50 Source: patient and RN notes reviewed Mode of arrival: ambulatory Limitations: no limitations History of Present Illness HPI narrative: This is a 52-year-old Gabonese-speaking male, with a past medical history of hepatitis C and depression, presenting to the emergency department for evaluation of left hip and back pain x2 days. Patient reports that 2 days ago he jumped into a pool that was shallow and he forcefully hit the bottom of the pool with his left leg and instantly felt pain. He states that the pain radiates from the left middle of his back to his left hip. He reports that the pain worsens with movement and ambulation. Patient denies history of back or hip pain in the past. No urinary or bowel incontinence. No saddle anesthesia. No abdominal pain, chest pain, or shortness of breath. MD complaint: Left hip, back pain Onset (ago): day(s) Location: lower extremity Radiation: non-radiation Severity: moderate Quality: burning and aching Pain Consistency: constant Relieving factors: immobilization Exacerbating factors: movement Associated symptoms: denies other symptoms Treatments prior to arrival: none Related Data Previous Rx's Medication Instructions Recorded trazodone 50 mg tablet 50 mg PO BEDTIME PRN sleep 30 days 06/24/22 #30 tabs acetaminophen 325 mg capsule 325 mg PO Q6H PRN pain #45 caps 04/19/23 (Tylenol) ibuprofen 600 mg tablet 600 mg PO Q6H PRN pain #45 tabs 04/19/23 lidocaine 5 % topical patch 1 patch topical DAILY #30 ea 04/19/23 (Lidoderm) Allergies Allergy/AdvReac Type Severity Reaction Status Date / Time penicillin V Allergy Unknown rash Verified 04/02/23 16:37 Review of Systems Review of Systems: Yes all other systems are reviewed and are negative Constitutional: Constitutional: Reports as per [facility] Past Medical History Attestation statement: The following information was validated with the patient. Medical History Depression Family history of diabetes mellitus HCV (hepatitis C virus) Insomnia Panic attacks Transaminitis Family History Family History Father No problems noted. Mother No problems noted. Sister Diabetes mellitus Social History Social History Household Members: None Household Members Other:: alone Alcohol intake: never Cigarettes Per Day: 10 Smoked in Last 30 Days: No Use of substances other than those prescribed or required for medical reasons: No Substance Use Type: Marijuana Advance Directives: No Advance Directives Information Provided: No Current occupational status: disabled Physical Exam ED Vital Signs: Vital Signs - 24 hr 04/19/23 08:13 Temperature 97.2 F Pulse Rate 67 Respiratory Rate 16 Blood Pressure 138/68 Pulse Oximetry 97 Oxygen Delivery Method Room Air BMI result Body Mass Index 20.5 Const General: cooperative, comfortable and no acute distress Orientation/consciousness: patient oriented x3 Limitations: no limitations HENMT Head: Yes normal to inspection, Yes normocephalic and Yes atraumatic Ears: hearing grossly normal bilaterally General nose exam: Normal external nose present Face and sinus: Yes normal facial exam Mouth: Normal oral and palatal mucosa present, oropharynx normal and moist mucous membranes Throat: Yes posterior oropharynx normal Eyes General: appearance normal, both eyes and all related structures Eyelids: Yes eyelids normal Conjunctivae: conjunctivae normal Sclerae: sclerae normal Pupils: Equal, round and reactive pupils present EOM: EOMs intact bilaterally Neck Neck: Yes normal visual inspection, Yes full ROM and Yes no lymphadenopathy Lymphatic: no lymphadenopathy noted Chest Chest palpation & inspection: normal inspection of the chest Resp Effort & Inspection: normal respiratory effort and able to speak in complete sentences Auscultation: clear to auscultation bilaterally, no crackles, no rales, no rhonchi and no wheezes Cardio Rate: regular rate Rhythm: regular rhythm Heart sounds: S1 normal heart sound present and S2 normal heart sound present GI Other: Abdomen is soft, nontender, no tenderness to palpation in the left upper abdomen. No ecchymosis noted. Inspection: Yes normal to inspection Back/Spine/Pelvis Other: No midline lumbar spine tenderness palpation. Patient has exquisite tenderness palpation along the left posterior iliac crest extending diffusely throughout the left hip. Tenderness palpation along the left lateral ribs diffusely. No point tenderness patellar reflexes 2+ Thoracic/Lumbar Spine: thoracic and lumbar spine normal to inspection Skin General skin exam: no rashes or lesions noted Trauma: no lacerations or abrasions Wounds: no wounds Neuro General: patient oriented x3 and moves all extremities Cranial nerves: Yes Equal, round and reactive pupils present Extrem General: Yes normal to inspection Right upper extremity: normal to inspection Left upper extremity: normal to inspection Right lower extremity: normal to inspection Left lower extremity: normal to inspection Course Reevaluation(s) Reevaluation #1: CT hip revealing no acute fracture. Patient's symptoms consistent contusion, sprain, will treat conservatively with ibuprofen Lidoderm patches. Patient advised to primary care physician as he may need to be referred to physical therapy for further treatment. Patient given return precautions if any new or worsening symptoms occur. Patient understands and agrees with plan. Patient stable for discharge. Time: 13:02 Medications Administered Discontinued Medications Generic Name Dose Route Start Last Admin Trade Name Freq PRN Reason Stop Dose Admin Acetaminophen 975 mg 04/19/23 08:23 04/19/23 08:25 Acetaminophen 325 Mg Tablet PO 04/19/23 08:24 975 mg ONCE ONE Administration Ibuprofen 600 mg 04/19/23 08:23 04/19/23 08:25 Ibuprofen 600 Mg Tablet PO 04/19/23 08:24 600 mg ONCE ONE Administration Medical Decision Making Medical Decision Making MDM Narrative: 52-year-old Gabonese-speaking male presenting to the emergency department for evaluation of back and hip pain x2 days. On arrival, all vital signs within normal limits. Patient has tenderness to palpation to the left hip. No numbness or tingling. No weakness. Patient has no history of hip or back pain. 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 Patient has severe pain throughout the left hip, with no known history of pain or back pain. Given level of pain and difficulty with ambulation, and no fracture seen on x-ray, will obtain hip CT for further imaging. Also with left lateral rib pain, lungs clear to auscultation, will obtain x-rays for further evaluation. No red flag back symptoms to suggest cauda equina syndrome. patellar reflexes 2+ Plan: X-ray lumbar spine, left hip, left ribs, CT left hip obtained to rule out fracture. Differential Diagnosis Differential Diagnoses: The differential diagnosis associated with the presentation includes Lumbar fracture, contusion, disc herniation, cauda equina syndrome Admission/Observation Consideration of admission/observation: Escalation of care including admission/observation considered Patient would have been admitted to the hospital had his work up had any findings where hospital admission was appropriate and his clinical presentation warranted hospital admission. External Record Review External record reviewed: Inpatient record, Office record, Outpatient record, Prior outpatient labs, Prior outpatient radiology, Primary care record and Outside ED record Review of past medical history at primary care office, last seen April 02, 2023 for routine physical. Discharge Plan Discharge Clinical Impression: Acute pain of left hip, Back pain Patient Disposition: Home, Self-Care Instructions: Acute Low Back Pain (ED), Hip Pain (ED) Additional Instructions: Your back x-ray showed [id number] degenerative changes to your spine. This is also known as arthritis, and happens as we age. You also have degenerative changes in your left hip. Your CT scan in all other x-rays did not show any left hip fractures, lumbar spine fractures or rib fractures. Please take prescribed medication as directed. Please follow-up with your primary care physician for further treatment and evaluation. If any new or worsening symptoms occur including but not limited to fevers, chills, chest pain, shortness of breath, numbness or tingling into your groin, and or loss of bowel or bladder control, is return for re-evaluation. La radiograf?a de avina espalda mostr? cambios degenerativos leves a moderados en avina columna. Hart tambi?n se conoce anneliese artritis y ocurre a medida que envejecemos. Tambi?n tiene cambios degenerativos en la cadera izquierda. Avina tomograf?a computarizada en todas las dem?s radiograf?as no mostr? ninguna fractura de cadera izquierda, fracturas de columna lumbar o fracturas de costillas. Barahona los medicamentos recetados seg?n las indicaciones. Dillon un seguimiento con avina m?dico de atenci?n primaria para recibir m?s tratamiento y evaluaci?n. Si se presentan s?ntomas nuevos o que empeoran, incluidos, entre otros, fiebre, escalofr?os, dolor en el pecho, dificultad para respirar, entumecimiento u hormigueo en la ken y/o p?rdida del control de los intestinos o la vejiga, debe regresar para ashley reevaluaci?n. Prescriptions: New ibuprofen 600 mg tablet 600 mg PO Q6H PRN (Reason: pain) Qty: 45 0RF acetaminophen [Tylenol] 325 mg capsule 325 mg PO Q6H PRN (Reason: pain) Qty: 45 0RF lidocaine [Lidoderm] 5 % adhesive patch,medicated 1 patch topical DAILY Qty: 30 0RF Rx Instructions: leave on most painful area for up to 12 hrs No Action trazodone 50 mg tablet 50 mg PO BEDTIME PRN (Reason: sleep) 30 Days Qty: 30 0RF Stand Alone Forms: Work/School Release Interventions: ED Discharge Assessment Last Done: 04/19/23 13:01 Discharge Date/Time: 04/19/23 13:02 Print Language: Gabonese
== END 2023-04-19 13:02 | disposition home or self-care (01) ==
PROVIDERS: Emergency Provider Student in an Organized Health Care Education/Training Program; PCP Internal Medicine
DX: M25.552 Pain in left hip (principal); M54.50 Low back pain, unspecified
CPT/HCPCS: 71101; 72100; 73502; 73700; 99284

== ENCOUNTER 2023-04-21 05:59 | Outpatient (REF) | payer MEDICARE, MEDICAID, SELFPAY ==
[2023-04-21 07:22] LABS: Estimated Average Glucose 100 mg/dL; Hemoglobin A1c % 5.1 %
== END 2023-04-21 06:00 | disposition home or self-care (01) ==
LOC: HO.LAB 05:59
PROVIDERS: PCP Internal Medicine; Visit Provider Nurse Practitioner Family
DX: R73.01 Impaired fasting glucose (principal)
CPT/HCPCS: 36415; 83036

== ENCOUNTER 2025-06-01 15:08 | Outpatient (AMB) | payer MEDICARE, MEDICAID, SELFPAY ==
[2025-06-01 15:36] VITALS: BP 120/70; PULSE 72; O2SAT 94; BMI 21.6
--- NOTE | 2025-06-01 15:37 | A.OFFVIS_ITS ---
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 He has a known allergy to penicillin, which has been documented in his medical history. PPP handed to patient. [place] or care reviewed and updated. Complains of bilateral knee pain and right elbow pain and will have x-rays. The patient has a history of hepatitis C, which was treated successfully in the past. He currently does not take any medications and has no ongoing symptoms related to hepatitis C. The patient reports experiencing mild depression, as indicated by a PHQ-9 score suggesting mild depressive symptoms. He is scheduled to see a psychiatrist this week for further evaluation and management. Preventative care measures discussed include colon cancer screening using a stool test, which can be completed at home. - Colon cancer screening with stool test discussed - Influenza vaccination recommended [facility] Medical History (Updated 06/01/25 @ 16:05 by Joann Morales MD) HCV (hepatitis C virus) Transaminitis Family history of diabetes mellitus Panic attacks Insomnia Depression Surgical History (Updated 06/01/25 @ 15:53 by Joann Morales MD) H/O umbilical hernia repair Family History Father No problems noted. Mother No problems noted. Sister Diabetes mellitus Social History (Updated 06/01/25 @ 15:53 by Joann Morales MD) Household Members: None Household Members Other:: alone Alcohol intake: current Alcohol intake frequency: a few times a month Alcohol type: beer Patient Tobacco Use Status: Current everyday Tobacco user Tobacco use type: Cigarette Cigarettes Per Day: 10 Substance Use Type: Marijuana Current occupational status: disabled Questionnaire Medicare Wellness Checkup What gender do you identify with?: male During the past 4 weeks, how much have you been bothered by emotional problems such as feeling anxious, depressed, irritable, sad or downhearted, and blue?: extremely During the past 4 weeks, has your physical & emotional health limited your social activities with family, friends, neighbors, or groups?: moderately During the past 4 weeks, how much bodily pain have you generally had?: mild pain During the past 4 weeks, was someone available to help you if you needed & wanted help?: yes, quite a bit During the past 4 weeks, what was the hardest physical activity you could do for at least 2 minutes?: heavy Can you get to places out of walking distance without help? (For eg., can you travel alone on buses, taxis or drive your car?): Yes Can you go shopping for groceries or clothes without someone's help?: Yes Can you prepare your own meals?: Yes Can you do your housework without help?: Yes Because of any health problems, do you need the help of another person with your personal care needs such as eating, bathing, dressing or getting around the house?: No Can you handle your own money without help?: Yes During the past 4 weeks, how would you rate your health in general?: very good During the past 4 weeks how have things been going for you?: good & bad parts about equal Are you having difficulties driving your car?: no Do you always fasten your seat belt when you are in a car?: yes, usually During past 4 weeks, have you been bothered by the following: never: Falling or dizzy when standing up, Sexual problems?, Teeth or denture problems? and Problems using the telephone?, sometimes: Tiredness or fatigue? and always: Trouble eating well? Have you fallen 2 or more times in the past year?: No Are you afraid of falling?: No Are you a smoker?: yes, and I might quit During the past 4 weeks, how many drinks of wine, beer, or other alcoholic beverages did you have?: 1 drink or less per week Do you exercise for about 20 minutes 3 or more times a week?: yes, some of the time Have you been given information to help with the following?: yes: Keeping track of your medications? and no: Hazards in your house that might hurt you? How often do you have trouble taking medicines the way you have been told to take them?: I do not have to take medicine How confident are you that you can control & manage most of your health problems?: not very confident What is your race?: or origin or descent Mini Mental State Exam (MMSE) Orientation What is the (year) (season) (date) (day) (month)?: year, season, date, day and month Where are we (state) (county) (town or city) (hospital) (floor)?: state, county, town or city, hospital/clinic and floor Registration Name of 3 unrelated objects clearly and slowly, then ask patient to repeat all 3 of them. (1st repeat determines score. Make sure they can repeat all three): object 1, object 2 and object 3 Recall Ask patient to repeat the 3 items from question #3.: object 1, object 2 and object 3 Language Show patient a wristwatch & ask what it is. Repeat for pencil.: watch and pencil Ask the patient to repeat the phrase 'No ifs, ands, or buts' after you.: correct Ask the patient to 'take a piece of paper with their right hand' 'fold paper in half' 'place paper on floor': take paper in right hand, fold paper in half and place paper on floor Print the sentence 'CLOSE YOUR EYES' on a piece. If patient actually closes eyes then score.: followed written direction Score Score: 23 Activity of Daily Living Bathing - sponge bath, tub bath or shower: receives no assistance (gets in/out by self, if usual bathing means Dressing - getting clothes from closets & drawers, including inner/outer garments & fasteners.: gets clothes & gets completely dressed without help Toileting - going to the 'toilet room' for urine/bowel elimination & cleaning self/arranging clothes: goes to toilet room, cleans self, arranges clothes without help Transfer: moves in & out of bed and chair without help (may use support object) Continence: controls urination/bowel movements completely by self Feeding: feeds self without help Total Score: 0 Information obtained from: patient Using telephone: independent Traveling: independent Shopping: independent Preparing meals: independent Housework: independent Taking medicine: independent Managing money: independent PHQ-9 Over the last 2 weeks, how often have you been bothered by any of the following problems? 1. Little interest or pleasure in doing things: several days 2. Feeling down, depressed, or hopeless: several days 3. Trouble falling or staying asleep, or sleeping too much: not at all 4. Feeling tired or having little energy: not at all 5. Poor appetite or overeating: more than half the days 6. Feeling bad about yourself - or that you are a failure or have let yourself or your family down: nearly every day 7. Trouble concentrating on things, such as reading the newspaper or watching television: several days 8. Moving or speaking so slowly that other people could have noticed. Or the opposite - being so fidgety or restless that you have been moving around a lot more than usual: not at all 9. Thoughts that you would be better off or of hurting yourself in some way: not at all Total score: 8 Depression Screening Interpretation: Positive Depression Screening Follow-up: Existing condition, Community Mental Health Worker F/U and Follow-up Visit Requested Depression Screening Done: Yes 03292 - PHQ-9 Billing: Yes Source: Developed by Drs. Rm Thomas, Marcella Mast, Rohan Brambila and colleagues, with an educational lamar from [employer]. Review of Systems Const All systems reviewed & are unremarkable except as noted in HPI and below Card Denies chest pain at rest, Denies chest pain with activity, Denies edema, Denies irregular heart rhythm, Denies claudication, Denies dyspnea, Denies dyspnea on exertion, Denies orthopnea, Denies paroxysmal nocturnal dyspnea and Denies slow heart rate Resp Denies cough, Denies dyspnea and Denies dyspnea on exertion Physical Exam Vital Signs: Last Vital Signs Pulse 72 06/01/25 15:36 BP 120/70 06/01/25 15:36 Pulse Ox 94 06/01/25 15:36 Oxygen Delivery Method Room Air 06/01/25 15:36 BMI result Body Mass Index 21.6 Resp Effort & Inspection: normal respiratory effort Auscultation: clear to auscultation bilaterally Cardio Jugular venous distension: no JVD Rate: regular rate Rhythm: regular rhythm Heart sounds: S1 normal heart sound present and S2 normal heart sound present Neuro Romberg Test: Negative Extrem General: Yes full ROM Assessment & Plan Assessment & Plan (1) Encounter for Medicare annual wellness exam: Code(s): Z00.00 - Encounter for general adult medical examination without abnormal findings (2) Mild recurrent major depression: Code(s): F33.0 - Major depressive disorder, recurrent, mild (3) Right elbow pain: Code(s): M25.521 - Pain in right elbow (4) Left knee pain: Code(s): M25.562 - Pain in left knee (5) Right knee pain: Code(s): M25.561 - Pain in right knee Plan Plan Patient was informed and verbally consented to the use of an ambient scribe for clinic note documentation during this visit. 1. Encounter for general adult medical examination without abnormal findings Z00.00 Colon cancer screening using a stool test was discussed, and the patient was informed about the procedure to complete it at home. 2. Major depressive disorder, recurrent, mild F33.0 HCC 59 The patient reports mild depressive symptoms and is scheduled to see a p sychiatrist for further evaluation and management. 3. Pain in right knee M25.561 XR ordered. 4. Pain in left knee M25.562 XR ordered. 5. Pain in right elbow M25.521 XR ordered. Orders: Orders Lipid Panel Today E78.5 - Hyperlipidemia, unspecified Comprehensive [place]. Panel Fast Today Z00.00 - Encounter for general adult medical examination without abnormal findings XR knee LT 2V Today M25.562 - Pain in left knee XR knee RT 2V Today M25.561 - Pain in right knee XR elbow RT 2V Today M25.521 - Pain in right elbow Referrals Cologuard Test Z12.11 - Encounter for screening for malignant neoplasm of colon, Z12.12 - Encounter for screening for malignant neoplasm of rectum Quality Reporting (2019) Depression/Bipolar (159/160/161/177) PHQ-9: Total score: 8 Coding Level of Care Code Medicare First (G0438) Est Pt Level 3 (80435) Diagnoses Encounter for Medicare annual wellness exam Z00.00 Mild recurrent major depression F33.0 Right elbow pain M25.521 Left knee pain M25.562 Right knee pain M25.561 Additional Codes PHQ-9 - 74441 - PHQ-9 Billing: Yes ([id number]) Time Spent (min) 36
== END 2025-06-01 16:01 | disposition home or self-care (01) ==
LOC: HO.HMCH 15:08
PROVIDERS: PCP Internal Medicine; Visit Provider Internal Medicine
DX: Z00.00 Encounter for general adult medical examination without abnormal findings (principal); F33.0 Major depressive disorder, recurrent, mild; M25.521 Pain in right elbow; M25.562 Pain in left knee; M25.561 Pain in right knee

== ENCOUNTER → 2025-06-01 15:08 | Outpatient (BNVA) | payer OTHER, SELFPAY | PROVIDERS: PCP Internal Medicine; Visit Provider Internal Medicine | DX: Z00.00 Encounter for general adult medical examination without abnormal findings (principal); M25.561 Pain in right knee; M25.562 Pain in left knee; M25.521 Pain in right elbow; E78.5 Hyperlipidemia, unspecified; F33.0 Major depressive disorder, recurrent, mild; Z86.19 Personal history of other infectious and parasitic diseases | CPT/HCPCS: 96127; 99212 ==

== ENCOUNTER 2025-06-06 07:01 | Outpatient (REF) | payer OTHER, SELFPAY ==
[2025-06-06 08:05] LABS: Alanine Aminotransferase 31 U/L (0-40); Albumin Level 4.4 g/dL (3.5-5.0); Alkaline Phosphatase 81 U/L (39-117); Anion Gap 12 (12-20); Aspartate Amino Transferase 32 U/L (5-37); Blood Urea Nitrogen 21 mg/dL (9-16); Calcium 9.6 mg/dL (8.4-10.2); Carbon Dioxide 25 mmol/L (22-29); Chloride 110 mmol/L (96-108); Cholesterol 214 mg/dL (<200); Estimated Glomerular Filt Rate > 60; HDL Cholesterol 41 mg/dL (>40); Potassium 4.2 mmol/L (3.3-5.1); Sodium 143 mmol/L (135-145); Total Protein 7.1 g/dL (6.5-8.0); Triglycerides 134 mg/dL (<150)
== END 2025-06-06 07:02 | disposition home or self-care (01) ==
LOC: HO.LAB 07:01
PROVIDERS: PCP Internal Medicine; Visit Provider Internal Medicine
DX: Z00.00 Encounter for general adult medical examination without abnormal findings (principal); E78.5 Hyperlipidemia, unspecified
CPT/HCPCS: 36415; 80053; 80061

== ENCOUNTER 2025-06-08 10:07 | Outpatient (REF) | payer OTHER, SELFPAY ==
--- NOTE | ~2025-06-08 | XR_ITS ---
EXAMINATION: EXAMINATION: XR KNEE AP STANDING CLINICAL INFORMATION: M25.562 - Pain in left knee, pain in right knee COMPARISON: None available. TECHNIQUE: AP and lateral views bilateral standing view of the knees was obtained. FINDINGS: No acute cortical disruption or malalignment. There is preservation of the joint spaces. No suprapatellar bursa joint effusion. No lytic or blastic lesions. 9 mm well-corticated calcification, popliteal region right knee. Probable 9 mm bony island, lateral aspect distal diaphysis/metaphysis left femur.. XR/XR Knee Itz 1or 2V IMPRESSION: No acute fracture or dislocation or gross osteoarthritis/osteoarthrosis. Electronically signed by: Rashard Cummings MD 06/08/2025 10:31 AM EDT
--- NOTE | ~2025-06-08 | XR_ITS ---
EXAMINATION: XR ELBOW 3 VIEWS RIGHT HISTORY: M25.521 - Pain in right elbow COMPARISON: There are no prior studies available for comparison. FINDINGS: Three views of the right elbow are submitted. Osseous mineralization is normal. There is no fracture or dislocation. The joint spaces are preserved. The soft tissues are unremarkable. There is no joint effusion. XR/XR elbow RT min 3V IMPRESSION: Unremarkable examination of the right elbow. Electronically signed by: Rm Espinal MD 06/08/2025 10:25 AM EDT
== END 2025-06-08 10:08 | disposition home or self-care (01) ==
LOC: HO.XRAY 10:07
PROVIDERS: PCP Internal Medicine; Visit Provider Internal Medicine
DX: M25.562 Pain in left knee (principal); M25.521 Pain in right elbow; M25.561 Pain in right knee
CPT/HCPCS: 73080; 73560

== ENCOUNTER → 2025-06-08 10:11 | Outpatient (BNV) | payer OTHER, SELFPAY | PROVIDERS: PCP Internal Medicine; Visit Provider Radiology Diagnostic Radiology | DX: M25.521 Pain in right elbow (principal); M25.561 Pain in right knee; M25.562 Pain in left knee | CPT/HCPCS: 73080; 73560 ==